=== PATIENT | male | born 1945 | race Caucasian/White ===

== ENCOUNTER 2019-07-13 20:49 | Emergency (ER) | payer OTHER ==
[~2019-07-13] VITALS: Ht 177.8 cm; Wt 81.7 kg
[~2019-07-13 20:49] MED LIST: EDLUAR10 MG PO; GLIMEPIRIDE1 MG PO; GLUCOSAMINE HC500 MG PO; LAMICTAL100 MG PO; LISINOPRIL20 MG PO; METFORMIN HCL500 MG PO; MOBIC15 MG PO; MYSOLINE50 MG PO; SIMVASTATIN40 MG PO; XANAX 0.25 MG0.25 MG PO
[2019-07-13] MEDS ORDERED: METFORMIN HCL500 M3 PO (21:00)
[2019-07-13] MEDS ORDERED: METHYLPHENIDATE10 M1 PO (21:00)
[2019-07-13] MEDS ORDERED: NORVASC 2.5 MG2.5 M1 PO (21:01)
[2019-07-13] MEDS ORDERED: EZALLOR SPRINKL10 MG PO (21:01)
[2019-07-13] MEDS ORDERED: NORCO 5-325 TA1 EAC1 PO (22:16)
[2019-07-13] MEDS ORDERED: KEFLEX500 M1 PO (22:18)
[2019-07-13 22:26] VITALS: BP 147/87
== END 2019-07-13 22:27 | disposition home or self-care (01) ==
LOC: M.ERS 20:49
DX: S61.213A Laceration without foreign body of left middle finger without damage to nail, initial encounter (principal); S61.217A Laceration without foreign body of left little finger without damage to nail, initial encounter; S61.211A Laceration without foreign body of left index finger without damage to nail, initial encounter; I10 Essential (primary) hypertension; E11.9 Type 2 diabetes mellitus without complications; M19.90 Unspecified osteoarthritis, unspecified site; Z85.828 Personal history of other malignant neoplasm of skin; Z88.6 Allergy status to analgesic agent; Z91.013 Allergy to seafood; W31.2XXA Contact with powered woodworking and forming machines, initial encounter; Y92.89 Other specified places as the place of occurrence of the external cause; Y93.89 Activity, other specified; Y99.8 Other external cause status